=== PATIENT | male | born 1985 | race Caucasian/White ===

== ENCOUNTER 2016-09-15 07:29 | Inpatient (IN) | payer MEDICAID ==
--- NOTE | 2016-09-15 07:33 | EDPHY ---
H & P HPI/ROS: CHIEF COMPLAINT: Abdominal pain HISTORY OF PRESENT ILLNESS: This is a 31-year-old male who arrives by ambulance. He reports abdominal pain that has been recurrent daily since the end of March. He has a history of peptic ulcer disease as a teenager. Since March he has been seen 4 times in emergency departments locally and once in an emergency department in [place]. He receives his primary care at [facility]. In May he underwent colonoscopy and endoscopy, both of which were reportedly normal. He was advised to take Prilosec twice daily, dicyclomine, and Zofran. He discontinue the Prilosec and the dicyclomine because they were not helping and he was concerned about side effects. The Zofran occasionally helps but not consistently. He was offered antianxiety medication but declined them. He saw a psychiatrist who agreed that he did not need anxiolytics. He describes his pain is midepigastric, sharp and burning. It occurs every morning around 5:00 a.m. and is followed by nausea and vomiting. He does not drink any alcohol, does not use tobacco products, and does not take any illicit drugs. He is not using NSAIDs. No recent travel. He smokes marijuana daily in varying quantity. He does tell me that he takes hot showers for relief. Cyclic vomiting has been discussed with him. He states that he takes that hot showers because they are a comfort to him--he spent 6 years incarcerated, some of it in solitary confinement, and hot showers feel like a luxury to him since then. He does not think that he has cyclic vomiting. He denies diarrhea, hematemesis, hematochezia, and melena. REVIEW OF SYSTEMS: A ten point review of systems was performed and is negative with the exception of the items mentioned in the HPI. Source: Patient, EMS Exam Limitations: No limitations - Medical/Surgical History PMH: Ulcer disease as a child - Social History Smoking Status: Never smoked Alcohol Use: None Drug Use: Marijuana Additional Social History: He is . 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 - Physical Exam Exam: General Appearance: Alert. Vital signs reviewed. He appears somewhat uncomfortable. Blood pressure 139/93, vitals otherwise normal. Intermittently tearful. Eyes: Pupils equal and round, no conjunctival injection, no discharge. Anicteric. ENT, Mouth: Mucous membranes are moist, no oropharyngeal erythema or edema. Neck: No lymphadenopathy, supple. Respiratory: Lungs are clear to auscultation; no wheezes, rales, or rhonchi. Cardiovascular: Regular rate and rhythm; no murmur, rub, or gallop. Gastrointestinal: Abdomen is soft with midepigastric tenderness, no guarding, no masses or organomegaly, bowel sounds normal. Skin: Warm and dry, no rashes on exposed skin, normal color. Back: Nontender to palpation over the thoracolumbar spine. No CVAT. Extremities: No lower extremity edema, no calf tenderness or swelling. Neurological: Alert and oriented. Moving all four extremities easily and equally. Psychiatric: Normal affect. No agitation. Constitutional: Initial Vital Signs Temperature (C) 36.5 C 09/15/16 07:34 Heart Rate 69 09/15/16 07:34 Respiratory Rate 18 09/15/16 07:34 Blood Pressure 139/93 H 09/15/16 07:34 O2 Sat (%) 94 09/15/16 07:34 O2 Delivery Mode Room Air Allergies/Adverse Reactions: Sulfa (Sulfonamide Antibiotics) Allergy (Verified 09/15/16 11:36) Swelling/neck,face,throat Home Medications: Medication Instructions Recorded Herbals/Supplements -Info Only 1 ea PO DAILY 09/15/16 Medical Decision Making ED Course/Re-evaluation: 31-year-old male with a history of daily abdominal pain and nausea for the past 5 months. He has had numerous evaluations including a GI workup with colonoscopy and endoscopy. I requested his records from [facility]. He received fentanyl, morphine, and Zofran EN route. Around 8:20 a.m. he requested additional pain medication. He is being given IV ketamine. Records have arrived from [facility]. He was evaluated on April 16, 2016. At that time he was diagnosed with gastritis and discharged on Prilosec and Zofran. He was seen again 4 days later, on April 20, 2016 with this same complaints. CT scan of the abdomen and pelvis with IV contrast was performed and was normal. He was again discharged. His most recent visit was on September 13, 2016. While in the emergency department he received IV normal saline , Pepcid, Haldol, and Benadryl. 9:30 a.m.. He had no relief with IV ketamine. Haldol 2.5 mg and Benadryl 25 mg administered intravenously. He was re-evaluated at 9:30 a.m. and is complaining of feeling as if he is going to crawl out of his skin. This is likely reaction to the Haldol. He will receive an additional 25 mg of Benadryl IV. His pain remains unchanged. His pain has persisted throughout his stay in the ED, in spite of above medications and dilaudid. He has not had vomiting or retching, as is usually seen with cyclic vomiting syndrome. He reports intermittent diarrhea, none today. Inflammatory bowel disease unlikely. Lipase is normal--pancreatitis/ biliary disease less likely. PUD/gastritis remain possible. Irritable bowel syndrome possible. I am recommending admission for pain control and further evaluation. He is being admitted to the hospitalist service. Differential Diagnosis: Abdominal pain including but not limited to appendicitis, bowel obstruction, abdominal migraine, cyclic vomiting, pancreatitis, cholecystitis, peptic ulcer disease/gastritis, IBD, and urinary tract infection. - Data Points Laboratory Results: Laboratory Results 09/15/16 07:30 09/15/16 07:30 Medications Given: Discontinued Medications Al Hydroxide/Mg Hydroxide (Maalox Susp) 30 ml PO ONCE ONE Stop: 09/15/16 07:54 Last Admin: 09/15/16 08:33 Dose: 30 ml Diphenhydramine HCl (Benadryl Injection) 25 mg IVP EDNOW ONE Stop: 09/15/16 08:54 Last Admin: 09/15/16 09:03 Dose: 25 mg Diphenhydramine HCl (Benadryl Injection) 25 mg IVP EDNOW ONE Stop: 09/15/16 09:29 Last Admin: 09/15/16 09:31 Dose: 25 mg Haloperidol Lactate (Haldol Injection) 2.5 mg IVP EDNOW ONE Stop: 09/15/16 08:54 Last Admin: 09/15/16 09:04 Dose: 2.5 mg Hydromorphone HCl (Dilaudid) 0.5 mg IVP EDNOW ONE Stop: 09/15/16 10:02 Last Admin: 09/15/16 10:06 Dose: 0.5 mg Hyoscyamine Sulfate (Levsin, Hyomax-Sl) 0.25 mg PO ONCE ONE Stop: 09/15/16 07:54 Last Admin: 09/15/16 08:33 Dose: 0.25 mg Sodium Chloride (Ns) 1,000 mls @ 0 mls/hr IV EDNOW ONE; Wide Open PRN Reason: Protocol Stop: 09/15/16 07:41 Last Admin: 09/15/16 08:33 Dose: 1,000 mls Famotidine/Sodium Chloride (Pepcid 20 Mg (Premix)) 50 mls @ 200 mls/hr IV EDNOW ONE Stop: 09/15/16 08:07 Last Admin: 09/15/16 08:34 Dose: 50 mls Ketamine HCl (Ketamine) 15.9 mg 0.2 mg/kg (15.9 mg) IVP EDNOW ONE Stop: 09/15/16 08:16 Last Admin: 09/15/16 08:26 Dose: 15.9 mg Lidocaine (Lidocaine 2% Viscous) 15 ml PO ONCE ONE Stop: 09/15/16 07:54 Last Admin: 09/15/16 08:33 Dose: 15 ml Departure - Departure Disposition: Home, Routine, Self-Care Clinical Impression: Abdominal pain Qualifiers: Abdominal location: epigastric Qualified Code(s): R10.13 - Epigastric pain Condition: Good
[2016-09-15] MEDS ORDERED: NS 1,000 ML IV ONE (07:40)
[2016-09-15] MEDS ORDERED: MAG HYDROX/AL HYDROX/SIMETH 30 ML UDCUP PO ONE (07:53)
[2016-09-15] MEDS ORDERED: LIDOCAINE 2% VISCOUS 15 ML UDCUP PO ONE (07:53)
[2016-09-15] MEDS ORDERED: HYOSCYAMINE SULFATE 0.125 MG TAB PO ONE (07:53)
[2016-09-15] MEDS ORDERED: FAMOTIDINE 20 MG/NACL 50 ML IV ONE (07:53)
[2016-09-15 08:01] LABS: % IMMATURE GRANULYOCYTES 0.7 % (0.0-1.1); ABSOLUTE IMMATURE GRANULOCYTES 0.09 10^3/uL (0.00-0.10); ADD DIFF? NO; ADD MORPH? NO; ADD SCAN? NO; ATYPICAL LYMPHOCYTE FLAG 0 (0-99); FRAGMENT RBC FLAG 0 (0-99); HEMATOCRIT 51.1 % (40.0-51.0); HEMOGLOBIN 18.1 g/dL (13.7-17.5); LEFT SHIFT FLG 0 (0-99); LIPEMIA HEMOLYSIS FLAG 90 (0-99); MEAN CELL HEMOGLOBIN 31.4 pg (27.9-34.1); MEAN CELL HEMOGLOBIN CONCENTR. 35.4 g/dL (32.4-36.7); MEAN CELL VOLUME 88.7 fL (81.5-99.8); MEAN PLATELET VOLUME 9.9 fL (8.7-11.7); PLATELET CLUMPS FLAG 0 (0-99); PLATELET COUNT 352 10^3/uL (150-400); RED BLOOD CELL COUNT 5.76 10^6/uL (4.40-6.38); RED CELL DISTRIBUTION WIDTH 12.5 % (11.5-15.2)
[2016-09-15 08:09] LABS: ALANINE AMINOTRANSFERASE 80 IU/L (21-72); ALBUMIN 4.9 g/dL (3.5-5.0); ALKALINE PHOSPHATASE 108 IU/L (38-126); ANION GAP 18 mEq/L (8-16); ASPARTATE AMINOTRANSFERASE 37 IU/L (17-59); BILIRUBIN,TOTAL 0.8 mg/dL (0.1-1.4); BILIRUBIN-CONJUGATED 0.4 mg/dL (0.0-0.5); BILIRUBIN-UNCONJUGATED 0.4 mg/dL (0.0-1.1); CALCIUM 10.2 mg/dL (8.5-10.4); CARBON DIOXIDE 25 mEq/l (22-31); CHLORIDE 105 mEq/L (97-110); CREATININE 0.9 mg/dL (0.7-1.3); GLOMERULAR FILTRATION RATE > 60; GLUCOSE 98 mg/dL (70-100); POTASSIUM 3.6 mEq/L (3.5-5.2); SODIUM 148 mEq/L (134-144); TOTAL PROTEIN 8.4 g/dL (6.3-8.2)
[2016-09-15] MEDS ORDERED: KETAMINE 100 MG/10 ML SYR IVP ONE (08:15)
[2016-09-15] MEDS ORDERED: HYOSCYAMINE SULFATE 0.125 MG TAB ONE (08:30)
[2016-09-15] MEDS ORDERED: HALOPERIDOL LACT 5 MG/ML INJ IVP ONE (08:53)
[2016-09-15 09:30] LABS: COLOR YELLOW; LEUKOCYTE ESTERASE,URINE NEGATIVE (NEGATIVE); NITRITE,URINE NEGATIVE (NEGATIVE)
[2016-09-15] MEDS ORDERED: HYDROmorphONE/DILAUDID 1 MG/ML SYR IVP ONE (10:01)
[2016-09-15] MEDS ORDERED: PROMETHAZINE HCL 25 MG TAB PO PRN (13:46)
[2016-09-15] MEDS ORDERED: ACETAMINOPHEN 325 MG TAB PO PRN (13:46)
[2016-09-15] MEDS ORDERED: ONDANSETRON DISINTEGRATING 4 MG TAB PO PRN (13:46)
[2016-09-15] MEDS ORDERED: ZOLPIDEM TARTRATE 5 MG TAB PO PRN (13:46)
[2016-09-15] MEDS: oxyCODONE IR 5 MG TAB PO PRN (14:19)
[2016-09-15] MEDS: ONDANSETRON 4 MG/2 ML VIAL IVP PRN ×2 (14:22→18:05)
--- NOTE | 2016-09-15 14:34 | GHP ---
[f rep st] HISTORY AND PHYSICAL DATE OF ADMISSION: 09/15/2016 CHIEF COMPLAINT: Epigastric abdominal pain with nausea and vomiting. HISTORY OF PRESENT ILLNESS: A 32-year-old male presents with a complaint of epigastric abdominal pa in with nausea, vomiting and loose stools to diarrhea. In March 2016, the gentleman began experi encing burning epigastric abdominal pain with loose stools. The episode of pain would come on at 5 a.m. in the morning, be followed by a soft stool and then sometimes liquid stools and associated wit h a feeling of nausea and intermittently he would have vomiting. The pain would be 7/10 to 10/10 an d last anywhere from 1-2 hours. At that point, the pain would resolve and he was able to go about w ork in his daily life. He was seen at [facility] Emergency Department on 04/20/2016 and on 03/27. During these evaluations, no definitive diagnosis was made and he was prescribed Prilosec. On the initial visit, a CT of the abdomen and pelvis was performed with IV contrast and had no path ologic findings. He was prescribed Prilosec. He returned 4 days after the initial visit with the s esther symptoms, was re-evaluated without positive findings and again sent home. He was seen again on September 13, 2016, 2 days [employer] of his admission here at [facility]. At that visit, again there were no positive findings and he was discharged and he now returns for admission at [facility] with worsening abdominal nia n this morning. The pain again came on at 5 a.m., was burning, spreading in his epigastric region. He had one loose stool and then several watery stools followed by unremitting nausea and vomiting f or 1-2 hours. He was driving himself to the emergency department when he nearly passed out because of vomiting. He called 911 and was transported here and subsequently admitted. During this interval, he denies having fever, chills, sweats. 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 He has a history of hepatitis C for 9 years ago when he used IV medication and s hared needles. He reports his viral load has never been high and he has never been treated and he b elieves that his liver function tests are normal. Of particular note is once the pain and vomiting have resolved, he feels fine and can eat during the course of the day. He does smoke marijuana prob ably on a daily basis of an unknown quantity. He is generally able to sleep; although he says he mercedes s difficulty sleeping for fear of the onset of the pain. He will be awakened or awake at 5 a.m. whe n the pain will start again. This has been a daily problem since March 2016. He has never noted any black or tarry stools. It was noted he had black stools previously at the [facility] evaluations , but he was taking Pepto-Bismol at that time. Now, he notes the vomitus is green without any signs or flecks of blood. Stools have never been black or melanotic. He does have three family relative s on his father's side who have bowel problems and he describes it as irritable bowel syndrome. PAST MEDICAL HISTORY: Denies asthma, high blood pressure, diabetes or renal problems. PAST SURGICAL HISTORY: None. ALLERGIES: Sulfa drugs, causes tongue swelling. REVIEW OF SYSTEMS: In addition to the above HPI, the gentleman has been seen at of [facility] here he has had a colonoscopy, endoscopy and biopsy and these are reported to have all been negative by conversation with Dr. Leo Perea today. I have also reviewed medical records from [facility] to obtain this information. Of special note, all laboratories have been normal with a normal lipase, n ormal bilirubin, but on the last visit on September 13, his SGPT was elevated at 97 and the SGOT was el evated at 51 slightly. Viral studies for hepatitis C were not performed. The remainder of a 10-poi nt review of systems is negative. FAMILY HISTORY: Positive in a male cousin, an aunt and his grandmother all of which had a bowel dis order which he describes as irritable bowel disorder. There is no other family history. 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 He reports he does with occasion jump into outdoors streams and ponds and works in the [place] area. He has not be en exposed to anyone recently ill. He was incarcerated for 6 years and left correction 3 years ago. He is currently seeing a lady who he describes as his fiancee. She has a son and he considers it his son. Tobacco is none. Marijuana is positive in the form of smoking. Drugs IV and recreational otherwise are negative. PHYSICAL EXAMINATION: GENERAL: This is a pleasant, alert gentleman who appears without distress, b ut perhaps slightly anxious. Vital Signs: His vital signs here are normal. HEENT: Shows no signs of scleral icterus. His EOMs are intact. NECK: Supple without meningismus. LUNGS: Clear to P a nd A without wheezing or rales. HEART: Singular S1, S2. No murmur or gallop. ABDOMEN: Mild epig astric tenderness without a palpable or pulsatile mass. Liver and spleen cannot be palpated. There is no rebound. RECTAL: Exam was deferred. Showed normal male genitalia. EXTREMITIES: No edema, cyanosis or clubbing. There are several tattoos noted. LABORATORY: WBC is slightly elevated at 13,500 with a hemoglobin 18.1, and there is a left shift of his white count. Chemistry panel shows matters to be entirely normal except his ALT is elevated at 80 with a total protein of 8.4 and an elevated anion gap of 18 consistent with a metabolic acidosis of a mild degree. Urinalysis is negative. As noted above. I have reviewed the medical records from [facility] from 3 visits on March 27, April 20 and September 13. Again, these records show a negative CT scan performed on and laboratory showing an elevated ALT, consistent with our findings on September 13. I have discussed the case with Dr. Leo Perea today who will obtain the records from of the [facility]. He will be seeing the patient in consultation. ASSESSMENT: 1. Acute abdominal pain with the only positive finding of a slightly elevated ALT liver enzyme and a known positive history for hepatitis C. He does have some epigastric pain at this time, but prima rily the most severe pain which he has rated 10/10 has resolved. The cyclic and timed characteristi c of his pain is most consistent with an irritable bowel syndrome type pain and perhaps a hyperemesi s syndrome secondary to the use of marijuana. The patient himself was slightly vague as to the mela tity of marijuana that he has used; although he does note that he stopped marijuana for 2 weeks with out improvement in the symptoms. I believe this is probably a functional bowel disorder; although d ue to the elevated ALT, I will obtain an abdominal ultrasound and a lipase. In addition, the time a nd cyclic characteristic is most consistent with a hyperemesis secondary to marijuana and if that is the case, then the gentleman would need to stop it for not just 2 weeks, but probably several month s before this would resolve. 2. History of positive hepatitis C with a slightly elevated ALT liver enzyme. Viral load studies w ill be useful and will be ordered. 3. The gentleman reports diarrhea associated with these symptoms, so it most likely is functional, would be prudent to obtain a GI panel and a C. difficile study, which will be ordered. 4. Deep venous thrombosis prophylaxis will be with early ambulation. BILLING: The gentleman will be admitted to observation status. A GI consult will be obtained; alth ough I believe at this time until we have further positive findings, this would be best managed furt her as an outpatient following the above-noted lab tests. TIME: This admission required 55 minutes. /[id number]/MODL
--- NOTE | 2016-09-15 21:10 | GCON ---
[f rep st] CONSULTATION DATE OF CONSULTATION: 09/15/2016 REFERRING PHYSICIAN: Jose Alejandro Waller Jr., MD REASON FOR CONSULTATION: Abdominal pain. Dr. Waller, thank you very kindly for asking me to evaluate this patient in consultation for a kemi f complaint of generalized and epigastric abdominal pain. HISTORY OF PRESENT ILLNESS: He is a 31-year-old gentleman who has a very longstanding history of ab dominal pain dating back into his sprigger when he was 16 years old, and was told that he had a peptic ulcer. It is unclear how this diagnosis was made. Also of historical note is multiple me mbers in his family have had gastrointestinal problems that are felt to be related to possible funct ional bowel disease. The patient was in his usual state of health up until about March when he m carolee back from [place] to [place] and began developing epigastric and periumbilical abdominal pain. T he pain is a burning discomfort that begins in the morning. In the earlier months of his illness he was having pain that was more episodic lasting a few hours each morning and associated with nausea. There was also the onset of lower cramping abdominal pain, urgency, and diarrhea described as loos e, kind of soft stools. Having a bowel movement would actually escalate his symptoms. He has been incarcerated for the last 6 years which interestingly also began in March of 2008. It might be t hat his recent abdominal pain, onset because of the traumatic stress of his incarceration. He also had an associated move back to [place] which could also be an environmental trigger. His diagnostic evaluation for this has included an upper endoscopy and colonoscopy performed at the [facility] group. I have not seen those reports, but the patient s ays that he was told they were normal. He has also had a CT scan of the abdomen and pelvis in of this year at [facility] which I have reviewed and which is unremarkable for a cause of pa in. His workup on admission to [facility] revealed a mild elevation in ALT, but he has under lying viral hepatitis C that has not been treated and this may account for it. He denies any fever, chills, weight loss that is unintentional, hematochezia, or constipation. He denies joint pain, ad enopathy, jaundice, or rash. He has no other significant medical problems. He has been on nortript yline in the past for an attempt at treating this illness, but this made him feel dysphoric and depr essed. He also has been describing anxiety with panic attacks. It seemed to occur at the onset of the pain where he describes a sense of impending doom, pallor to his skin, and profuse sweating asso ciated with palpitations. I am asked to assist with further evaluation and management. PAST MEDICAL HISTORY: 1. Significant for anxiety disorder. 2. Viral hepatitis C. I do not know any of the details regarding when this was acquired, but he mercedes s not been treated and is naive to therapy. 3. 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 PAST SURGICAL HISTORY: None. MEDICATIONS: On admission include Prilosec which he has been taking intermittently. SOCIAL HISTORY: Occasional marijuana use. No significant alcohol use. No other substance abuse. He is . 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 ALLERGIES: Sulfa. FAMILY HISTORY: Significant for diarrhea predominant irritable bowel syndrome. REVIEW OF SYSTEMS: CONSTITUTIONAL: Denies fever or night sweats. Denies weight loss or anorexia. HEENT: Denies headache, visual disturbances, sore throat, rhinorrhea, or ear pain. PULMONARY: De nies cough, shortness of breath. No wheeze. CARDIOVASCULAR: No chest pain. He does report palpit ations sometimes with the onset of the pain that seems to be linked into anxiety symptoms. PSYCHIAT MAYUR: Anxiety, insomnia, depression. RHEUMATOLOGIC: No joint pain or swelling. No joint warmth. DERMATOLOGIC: No rash, jaundice, or pruritus. NEUROLOGIC: No seizures, paresthesias, weakness, or falls. GENITOURINARY: No hematuria, no flank pain. GYNECOLOGIC: No testicular pain or dysuria. No penile lesion. No anal or rectal pain. PHYSICAL EXAM: VITAL SIGNS: Blood pressure 112/64, heart rate 45 to 56 and regular, respirations 1 8, oxygenation 94% on room air. Temperature is 36.6. GENERAL: Mildly anxious appearing young male in no acute distress. HEENT: Normocephalic, atraumatic. Oropharynx clear. NECK: Supple. Scler ae anicteric. No lymphadenopathy. No thyromegaly. No carotid bruits. No jugular venous distentio n. PULMONARY: Clear to auscultation bilaterally. CARDIOVASCULAR: Regular rate and rhythm without murmur, rub, or gallop. GI: Abdomen is scaphoid. No organomegaly. Normal bowel sounds. No gi iation. No tenderness, rebound, or guarding. No palpable mass or lesion. No abdominal bruit. MUS CULOSKELETAL: No joint deformities, clubbing, cyanosis, or swelling. Normal gait and station. IMTIAZ ROLOGIC: Alert to person, place, and time. Cranial nerves grossly intact. Motor nonfocal. Speech is fluent and normal. Mood and affect are appropriate, but slightly anxious. No asterixis. DERMA TOLOGIC: No jaundice, rash, or lesion. HEMATOLOGIC: No bruising or epistaxis. DATABASE: Includes the following: White blood count 13.5, hematocrit 51.1. MCV 88.7, RDW 12.5, pl atelets 352. Sodium 148, potassium 3.6, chloride 105, bicarbonate 25, BUN 15, creatinine 0.9, gluco se 98, anion gap is 18, total bilirubin 0.8, alkaline phosphatase 108, AST 37, ALT elevated at 80, t otal protein 8.4, albumin 4.9. Lipase 209. Urinalysis is turbid, but negative otherwise. IMPRESSION: 1. Diffuse abdominal pain. 2. Episodes of nausea with vomiting. 3. Chronic diarrhea likely functional. 4. Anxiety with insomnia and possible panic attacks. 5. Elevated liver tests. 6. Remote history of chronic viral hepatitis C that is somewhat poorly characterized at this point. RECOMMENDATIONS: 1. Obtain the results of his EGD and colonoscopy with possible biopsies that were performed at [facility] in March. 2. Abdominal ultrasound to exclude cholelithiasis, biliary disease, and to assess liver morphology in the setting of viral hepatitis C. 3. Viral hepatitis panel to include a viral hepatitis A total antibody, hepatitis B surface antigen and core antibody total, hepatitis C antibody and PCR to better characterize his viral hepatitis C. He will likely benefit from treatment of this illness which should help globally with his health c are. 4. In regard to his abdominal pain and chronic diarrhea, I believe this is functional and does not require any further diagnostic testing. In this regard I would recommend azipramine 10 mg p.o. at b edtime and Librax 1 capsule p.o. three times daily. Librax can often be beneficial in patients who have a functional bowel syndrome manifesting pain, but also with a component of anxiety. 5. We will consider the use of Xifaxan for diarrhea predominant irritable bowel syndrome pending on how his initial treatment algorithm goes. 6. Check stool studies for C difficile and infection, although I think this less likely. 7. Further recommendations to follow his initial diagnostic workup and therapeutic algorithm. Thank you very kindly for allowing me to be involved in his care. Further recommendations to follow . /[id number]/MODL
[2016-09-15] MEDS: PANTOPRAZOLE SODIUM 40 MG in NS 100 ML IV SCH (21:21)
[2016-09-15] MEDS: DESIPRAMINE HCL 10 MG TAB PO SCH (21:21)
[2016-09-15] MEDS: LORazepam 2 MG/ML INJ IVP PRN (21:37)
[2016-09-16] MEDS: D5W 1/2 NS 1,000 ML IV SCH ×3 (03:32→21:21)
[2016-09-16] MEDS: LORazepam 2 MG/ML INJ IVP PRN (05:15)
[2016-09-16 05:28] LABS: % IMMATURE GRANULYOCYTES 0.3 % (0.0-1.1); ABSOLUTE IMMATURE GRANULOCYTES 0.03 10^3/uL (0.00-0.10); ADD DIFF? NO; ADD MORPH? NO; ADD SCAN? NO; ATYPICAL LYMPHOCYTE FLAG 10 (0-99); FRAGMENT RBC FLAG 0 (0-99); HEMATOCRIT 43.6 % (40.0-51.0); HEMOGLOBIN 14.9 g/dL (13.7-17.5); LEFT SHIFT FLG 0 (0-99); LIPEMIA HEMOLYSIS FLAG 90 (0-99); MEAN CELL HEMOGLOBIN CONCENTR. 34.2 g/dL (32.4-36.7); MEAN CELL VOLUME 90.8 fL (81.5-99.8); MEAN PLATELET VOLUME 9.8 fL (8.7-11.7); PLATELET CLUMPS FLAG 0 (0-99); PLATELET COUNT 248 10^3/uL (150-400); RED CELL DISTRIBUTION WIDTH 12.4 % (11.5-15.2)
[2016-09-16] MEDS: oxyCODONE IR 5 MG TAB PO PRN ×3 (08:04→23:28)
[2016-09-16] MEDS ORDERED: MULTIVITAMINS 1 EACH TAB PO SCH (09:00)
[2016-09-16] MEDS: PANTOPRAZOLE SODIUM 40 MG in NS 100 ML IV SCH (09:36)
[2016-09-16] MEDS: CHLORDIAZ/CLIDINIU 5 MG/2.5 MG 1 CAP PO PRN ×2 (13:01→21:19)
--- NOTE | 2016-09-16 14:04 | HOSPPROG ---
Hospitalist Progress Note Assessment/Plan: 31-year-old male admitted with acute abdominal pain of unclear etiology. Patient has a history of epigastric abdominal pain since March 2016. He had been seen by [facility] and we are waiting those records. He had also been seen 3 times in the [facility] Emergency Department a in [facility] without definitive in final findings. On presentation he was experiencing acute abdominal pain with nausea vomiting and had diarrhea previously. - Acute abdominal pain possibly of functional disorder. He has a family history positive for IBS and the episodic nature of it occurring every morning at 5:00 a.m. is without other positive objective findings seems to indicate a probable functional disorder of irritable bowel syndrome. Consult with GI is appreciated. - Pain management: Will attempt to use of very few narcotics if at all. He this situation has a high possibility for narcotic abuse although the patient seems strongly motivated to avoid narcotics. We will follow the recommendations of GI and this matter as GI will be following. - History of hepatitis C related to drug abuse 9-12 years ago. He has never been treated for hepatitis-C. The antibody is positive here and we are waiting viral load studies. - Marijuana possible excessive use: Daphnie smokes approximately half a gram of marijuana daily. His abdominal pain may be secondary to and hyperemesis syndrome secondary to the use of marijuana. Thus I have encouraged him to stop marijuana completely and totally. He previously stopped it for 2 weeks but that would be an insufficient. Time to production control planner whether this is a hyper emesis syndrome related to marijuana. Plan: review [facility] records from [facility] regarding his colonoscopy and endoscopy in March 2016 along with biopsies. We will attempt to treat his abdominal pain as a functional disorder and limit the use of narcotics. We are waiting the final viral load studies for hepatitis C. I had a 30 minutes conversation with the gentleman regarding the possibility that this is a functional disorder and need to limit the use of narcotics. He is agreeable to this approach as he is currently working has a fiancee and a young son and is highly motivated to function without the use of drugs or narcotics. I also stressed and he agreed that he would stop marijuana completely in light of the possibility that the abdominal pain is secondary to hyper emesis syndrome related to cannabis. disposition: [place]. [place] Time: 45 minutes Subjective: patient did not have an episode of severe abdominal pain this morning. Had burning epigastric pain at the feeling that he needed to go to the bathroom but he never had a stool nor did he have any diarrhea nausea or vomiting. Objective: Vital Signs Temp Pulse Resp BP Pulse Ox 36.6 C 48 L 16 111/59 L 94 09/16/16 08:43 09/16/16 08:43 09/16/16 08:43 09/16/16 08:43 09/16/16 08:43 Laboratory Results 09/16/16 04:50 09/15/16 09/16/16 09/17/16 05:59 05:59 05:59 Intake Total 1550 1575 Balance 1550 1575 - Time Spent With Patient Time Spent with Patient: greater than 35 minutes Time Spent with Patient: Greater than 35 minutes spent on this patients care, greater than 50% of time spent counseling, educating, and coordinating care regarding the above mentioned plan. - Pending Discharge Pending Discharge Within 24 Hours: Yes Pending Discharge Date: 09/17/16 Pending Discharge Time: 11:00 - Physical Exam Constitutional: no apparent distress Eyes: PERRL Ears, Nose, Mouth, Throat: moist mucous membranes, hearing normal Cardiovascular: regular rate and rhythym, no murmur, rub, or gallop Respiratory: no respiratory distress, no rales or rhonchi Gastrointestinal: normoactive bowel sounds, soft, non-tender abdomen, no palpable masses, tenderness ( Some slight tenderness in the epigastrium without a palpable mass or rebound.) Genitourinary: no bladder fullness Skin: warm Musculoskeletal: full muscle strength Neurologic: AAOx3, CN II-XII Intact Psychiatric: interacting appropriately ICD10 Worksheet Patient Problems: Problems Problem Status Onset Abdominal pain Acute
[2016-09-16] MEDS: LORazepam 0.5 MG TAB PO PRN ×2 (16:14→23:48)
[2016-09-16] MEDS ORDERED: FAMOTIDINE 20 MG TAB PO SCH (16:15)
--- NOTE | 2016-09-16 16:53 | SOAPPROG ---
SHAMIKA Progress Note Assessment/Plan: Assessment: 1. Functional dyspepsia 2. Constipation 3. Chronic abdominal pain 4. HCV Plan: 1. Stop IV ativan 2. Stop IV protonix 3. D/C phenergan in favor of zofran 4. Continue desipramine 10mg qhs 5. Librax 1 capsule po TID PRN pain 6. He has IV morphine and oxy-IR for breakthrough which I would also try an d/c soon 7. Stop pepcid 8. Start protonix 40mg once daily 9. Amitiza 8mcg po BID for constipation 10. Await HCV viral load and genotype. If positive (confirming chronic HCV infection) will arrange for outpatient Rx. 11. U/S normal. 09/16/16 16:49 Subjective: CC: Generalized abdominal pain Symptoms continue unchanged. Constipated today. Eating. U/S normal. HCV viral load pending. No further diarrhea. Started desipramine and librax yesterday. Not really helping much at this time. Objective: Vital Signs Temp Pulse Resp BP Pulse Ox 36.6 C 48 L 16 111/59 L 94 09/16/16 08:43 09/16/16 08:43 09/16/16 08:43 09/16/16 08:43 09/16/16 08:43 Laboratory Results 09/16/16 04:50 09/15/16 09/16/16 09/17/16 05:59 05:59 05:59 Intake Total 1550 1575 Balance 1550 1575 Physical Exam - Physical Exam General Appearance: WD/WN, no apparent distress EENT: normal ENT inspection Neck: full range of motion, supple Respiratory: lungs clear, normal breath sounds Cardiac/Chest: regular rate, rhythm, No tachycardia, No diastolic murmur, No systolic murmur, No friction rub Abdomen: normal bowel sounds, non-tender, soft, No distended, No guarding, No rebound, No hernia, No mass, No hepatomegaly, No splenomegaly, No ascites Back: Normal inspection Skin: normal color, warm/dry ICD10 Worksheet Patient Problems: Problems Problem Status Onset Abdominal pain Acute
[2016-09-16] MEDS: ONDANSETRON 4 MG/2 ML VIAL IVP PRN (18:47)
[2016-09-16] MEDS: DESIPRAMINE HCL 10 MG TAB PO SCH (21:19)
[2016-09-16] MEDS: LUBIPROSTONE 8 MCG CAP PO SCH (21:24)
[2016-09-16] MEDS ORDERED: TEMAZEPAM 15 MG CAP PO PRN (22:00)
[2016-09-17 04:33] VITALS: RESP 16
[2016-09-17] MEDS: D5W 1/2 NS 1,000 ML IV SCH (04:36)
[2016-09-17 05:21] LABS: % IMMATURE GRANULYOCYTES 0.3 % (0.0-1.1); ABSOLUTE IMMATURE GRANULOCYTES 0.03 10^3/uL (0.00-0.10); ADD DIFF? NO; ADD MORPH? NO; ADD SCAN? NO; ATYPICAL LYMPHOCYTE FLAG 0 (0-99); FRAGMENT RBC FLAG 0 (0-99); HEMATOCRIT 44.4 % (40.0-51.0); HEMOGLOBIN 15.8 g/dL (13.7-17.5); LEFT SHIFT FLG 0 (0-99); LIPEMIA HEMOLYSIS FLAG 90 (0-99); MEAN CELL HEMOGLOBIN 31.7 pg (27.9-34.1); MEAN CELL HEMOGLOBIN CONCENTR. 35.6 g/dL (32.4-36.7); MEAN PLATELET VOLUME 9.6 fL (8.7-11.7); PLATELET CLUMPS FLAG 0 (0-99); PLATELET COUNT 280 10^3/uL (150-400); RED BLOOD CELL COUNT 4.99 10^6/uL (4.40-6.38)
[2016-09-17 05:44] LABS: ANION GAP 9 mEq/L (8-16); CARBON DIOXIDE 26 mEq/l (22-31); CHLORIDE 105 mEq/L (97-110); GLOMERULAR FILTRATION RATE > 60; GLUCOSE 86 mg/dL (70-100); POTASSIUM 4.1 mEq/L (3.5-5.2); SODIUM 140 mEq/L (134-144)
--- NOTE | 2016-09-17 09:33 | SOAPPROG ---
SOAP Progress Note Assessment/Plan: Assessment: 1. Functional dyspepsia 2. Constipation 3. Chronic abdominal pain 4. HCV Plan: 1. Ok for d/c home 2. Continue librax 1 capsule po TID PRN 3. Desipramine 10mg po qhs 4. Ok with cannabinoids for pain that he has been using but he needs to be sensible with dosing 5. Could consider tramadol for adjunctive pain mgt 6. FODMAPS diet 7. Amitiza 8mcg po BID PRN constipation 8. Daily probiotic 9. GI f/u for IBS and HCV Rx. Will sign off. Call with questions please. 09/17/16 09:29 Subjective: CC: abdominal pain. Ongoing generalized pain but better. Tolerating po. Started amitiza but no BM. He is ok with going home today and outpatient f/u Objective: Vital Signs Temp Pulse Resp BP Pulse Ox 36.7 C 47 L 16 121/70 H 96 09/17/16 08:00 09/17/16 08:00 09/17/16 08:00 09/17/16 08:00 09/17/16 08:00 Laboratory Results 09/17/16 04:31 09/17/16 04:31 09/16/16 09/17/16 09/18/16 05:59 05:59 05:59 Intake Total 4676 Output Total 400 Balance 4276 Physical Exam - Physical Exam General Appearance: WD/WN EENT: normal ENT inspection Respiratory: lungs clear Cardiac/Chest: regular rate, rhythm Abdomen: normal bowel sounds, non-tender, soft, No guarding, No rebound ICD10 Worksheet Patient Problems: Problems Problem Status Onset Abdominal pain Acute
[2016-09-17] MEDS: LUBIPROSTONE 8 MCG CAP PO SCH (11:28)
[2016-09-17 15:32] VITALS: BP 124/71; PULSE 61; TEMP 97.7; O2SAT 96
--- NOTE | 2016-09-17 19:37 | GDS ---
[f rep st] DISCHARGE SUMMARY DISCHARGE DIAGNOSES: 1. Functional dyspepsia. 2. Constipation. 3. Chronic abdominal pain. 4. Hepatitis C viral infection. HOSPITAL COURSE AND STAY BY PROBLEM: Abdominal pain. The patient was admitted to the hospital due to severe abdominal pain and was subsequently treated with IV narcotics. GI was consulted who thoug ht his symptoms were most likely due to functional dyspepsia, constipation and chronic abdominal nia n. It was recommended that he start Librax 1 p.o. three times daily, desipramine 10 mg at bedtime, as well as Amitiza three times daily 8 mcg twice daily as needed for constipation. A probiotic was recommended. It was recommended that he follow up with GI for hep C treatment. On physical exam on the day of discharge, blood pressure 121/70, pulse 47, respiratory rate 16, O2 s aturation 96% on room air and temperature afebrile. In general, in no acute distress. The abdomen is soft, nontender, nondistended. No guarding or rebound tenderness. Normoactive bowel sounds. Pertinent labs and studies during this hospital stay: Abdominal ultrasound done 09/15/2016, refer t o report. DISCHARGE MEDICATIONS: Please refer to discharge medication reconciliation [facility] for details. DISCHARGE INSTRUCTIONS: The patient will be discharged from the hospital where once again, it was r ecommended that he follow up with GI for hepatitis C treatment. He should also establish care with his primary care provider and have outpatient HIV test, given his risk factors. /[id number]/MODL
[2016-09-18 13:43] LABS: HCV QT RNA PCR 38607 IU/mL (<15)
== END 2016-09-17 16:41 | disposition home or self-care (01) | DRG 392 ==
LOC: EDUNIT# → F1N 10:50 → OBSVTOIN 09-16 16:50
PROVIDERS: ADMIT Internal Medicine Pulmonary Disease; ATTEND Family Medicine
DX: K30 Functional dyspepsia (principal); K59.00 Constipation, unspecified; R10.9 Unspecified abdominal pain; R19.7 Diarrhea, unspecified; B19.20 Unspecified viral hepatitis C without hepatic coma; F12.10 Cannabis abuse, uncomplicated; F41.9 Anxiety disorder, unspecified; Z83.79 Family history of other diseases of the digestive system; Z88.2 Allergy status to sulfonamides
CPT/HCPCS: 86708-90; 96365; G0378; G0472; J1170; J1200; J2060; J2405

== ENCOUNTER 2016-12-10 11:52 | Emergency (ER) | payer MEDICAID ==
[2016-12-10] MEDS ORDERED: HALOPERIDOL LACT 5 MG/ML INJ IVP ONE (12:42)
[2016-12-10] MEDS ORDERED: METOCLOPRAMIDE 10 MG/2 ML VIAL IVP ONE (12:42)
[2016-12-10 12:47] LABS: % IMMATURE GRANULYOCYTES 0.5 % (0.0-1.1); ABSOLUTE IMMATURE GRANULOCYTES 0.07 10^3/uL (0.00-0.10); ADD DIFF? NO; ADD MORPH? NO; ADD SCAN? NO; ATYPICAL LYMPHOCYTE FLAG 0 (0-99); FRAGMENT RBC FLAG 0 (0-99); HEMATOCRIT 51.3 % (40.0-51.0); HEMOGLOBIN 18.4 g/dL (13.7-17.5); LEFT SHIFT FLG 0 (0-99); LIPEMIA HEMOLYSIS FLAG 90 (0-99); MEAN CELL HEMOGLOBIN 30.9 pg (27.9-34.1); MEAN CELL HEMOGLOBIN CONCENTR. 35.9 g/dL (32.4-36.7); MEAN CELL VOLUME 86.1 fL (81.5-99.8); MEAN PLATELET VOLUME 9.2 fL (8.7-11.7); PLATELET CLUMPS FLAG 0 (0-99); PLATELET COUNT 364 10^3/uL (150-400); RED BLOOD CELL COUNT 5.96 10^6/uL (4.40-6.38); RED CELL DISTRIBUTION WIDTH 12.1 % (11.5-15.2)
--- NOTE | 2016-12-10 12:47 | EDPHY ---
H & P Stated Complaint: Abd pain, n/v x 9 mos Time Seen by Provider: 12/10/16 12:35 HPI/ROS: CHIEF COMPLAINT: Abdominal pain, vomiting and diarrhea HISTORY OF PRESENT ILLNESS: The patient is a 31-year-old man with history of functional dyspepsia, constipation, chronic abdominal pain and hepatitis C. he presents to the emergency department today complaining of abdominal pain that he states has been present since March of this year. He was admitted September with similar complaints. At that time he was seen by Dr. Perea from GI. Abdominal ultrasound was performed. He states that he has had upper endoscopy as well as colonoscopies performed and no specific diagnosis made. He has been put on an antidepressant as well as Levsin. He states that these are not working at home. He does have a history of cannabis use but states he has decreased significantly. He denies chest pain or shortness of breath. REVIEW OF SYSTEMS: Constitutional: denies: chills, fever, recent illness, recent injury EENTM: denies: blurred vision, double vision, nose congestion Respiratory: denies: cough, shortness of breath Cardiac: denies: chest pain, irregular heart rate, lightheadedness, palpitations Gastrointestinal/Abdominal: See HPI Genitourinary: denies: dysuria, frequency, hematuria, pain Musculoskeletal: denies: joint pain, muscle pain Skin: denies: lesions, rash, jaundice, bruising Neurological: denies: headache, numbness, paresthesia, tingling, dizziness, weakness Hematologic/Lymphatic: denies: blood clots, easy bleeding, easy bruising Immunologic/allergic: denies: HIV/AIDS, transplant EXAM: GENERAL: Well-appearing, well-nourished and in no acute distress. HEAD: Atraumatic, normocephalic. EYES: Pupils equal round and reactive to light, extraocular movements intact, sclera anicteric, conjunctiva are normal. ENT: TMs normal, nares patent, oropharynx clear without exudates. Moist mucous membranes. NECK: Normal range of motion, supple without lymphadenopathy or JVD. LUNGS: Breath sounds clear to auscultation bilaterally and equal. No wheezes rales or rhonchi. HEART: Regular rate and rhythm without murmurs, rubs or gallops. ABDOMEN: nontender, normoactive bowel sounds. No guarding, no rebound. No masses appreciated. BACK: No CVA tenderness, no spinal tenderness, step-offs or deformities EXTREMITIES: Normal range of motion, no pitting or edema. No clubbing or cyanosis. NEUROLOGICAL: Cranial nerves II through XII grossly intact. Normal speech, normal gait. 5/5 strength, normal movement in all extremities, normal sensation PSYCH: Normal mood, normal affect. SKIN: Warm, dry, normal turgor, no visible rashes or lesions. Source: Patient Exam Limitations: No limitations - Personal History Current Tetanus Diphtheria and Acellular Pertussis (TDAP): Yes - Medical/Surgical History Hx Asthma: No Hx Chronic Respiratory Disease: No Hx Diabetes: No Hx Cardiac Disease: No Hx Renal Disease: No Hx Cirrhosis: No Hx Alcoholism: No Hx HIV/AIDS: No Hx Splenectomy or Spleen Trauma: No Other PMH: Hep C+, Marijuana, chronic N/V. ?IBS - Family History Significant Family History: No pertinent family hx - Social History Smoking Status: Never smoked Alcohol Use: Sober Drug Use: None Constitutional: Initial Vital Signs Temperature (C) 36.7 C 12/10/16 12:00 Heart Rate 74 12/10/16 12:00 Respiratory Rate 22 H 12/10/16 12:00 Blood Pressure 123/70 H 12/10/16 12:00 O2 Sat (%) 100 12/10/16 12:00 O2 Delivery Mode Room Air Allergies/Adverse Reactions: Sulfa (Sulfonamide Antibiotics) Allergy (Intermediate, Verified 12/10/16 12:04) Swelling/neck,face,throat lorazepam [From Ativan] Allergy (Mild, Verified 12/10/16 12:04) Other-Enter Comments Home Medications: Medication Instructions Recorded Desipramine HCl [Norpramin] 10 mg PO 12/10/16 Hyoscyamine Sulfate [Levsin, 0.125 mg 12/10/16 Hyomax-Sl 0.125 mg (*)] Ketorolac Tromethamine [Toradol] 10 mg PO Q6H #16 tab 12/10/16 Promethazine HCl [Phenergan 25mg 25 mg TN Q4-6PRN PRN #10 suppr 12/10/16 supp (RX)] Medical Decision Making ED Course/Re-evaluation: 3:30 p.m. the patient has been sleeping. After getting up to go to the bathroom he states that he has had no improvement all in his symptoms. We will try ketamine and Toradol. He has already had multiple medications. We are trying to avoid narcotics. 4:15 p.m. after ketamine and Toradol the patient states that he is feeling better enough to go home. He is requesting a prescription for Toradol and something other than Zofran for nausea. I will give him Phenergan suppository. He is happy with this plan and declines further workup or testing. His abdominal exam is benign. Differential Diagnosis: Partial list of the Differential diagnosis considered include but were not limited to; cyclic vomiting, cannabis hyperemesis, and although unlikely based on the history and physical exam, I also considered appendicitis, obstruction, volvulus, biliary disease, peptic ulcer disease. I discussed these differential diagnoses and the plan with the patient as well as the usual and expected course. The patient understands that the diagnosis is provisional and that in medicine we are not always correct and that further workup is often warranted. Usual and customary warnings were given. All of the patient's questions were answered. The patient was instructed to return to the emergency department should the symptoms at all worsen or return, otherwise to followup with the physician as we discussed. - Data Points Laboratory Results: Laboratory Results 12/10/16 12:29 12/10/16 12:29 12/10/16 12/10/16 12/10/16 15:14 12:29 12:29 WBC 14.25 10^3/uL H 10^3/uL (3.80-9.50) RBC 5.96 10^6/uL 10^6/uL (4.40-6.38) Hgb 18.4 g/dL H g/dL (13.7-17.5) Hct 51.3 % H % (40.0-51.0) MCV 86.1 fL fL (81.5-99.8) MCH 30.9 pg pg (27.9-34.1) MCHC 35.9 g/dL g/dL (32.4-36.7) RDW 12.1 % % (11.5-15.2) Plt Count 364 10^3/uL 10^3/uL (150-400) MPV 9.2 fL fL (8.7-11.7) Neut % (Auto) 82.4 % H % (39.3-74.2) Lymph % (Auto) 13.1 % L % (15.0-45.0) [place] % (Auto) 3.5 % L % (4.5-13.0) Eos % (Auto) 0.1 % L % (0.6-7.6) Baso % (Auto) 0.4 % % (0.3-1.7) Nucleat RBC Rel Count 0.0 % % (0.0-0.2) Absolute Neuts (auto) 11.75 10^3/uL H 10^3/uL (1.70-6.50) Absolute Lymphs (auto) 1.86 10^3/uL 10^3/uL (1.00-3.00) Absolute Monos (auto) 0.50 10^3/uL 10^3/uL (0.30-0.80) Absolute Eos (auto) 0.02 10^3/uL L 10^3/uL (0.03-0.40) Absolute Basos (auto) 0.05 10^3/uL 10^3/uL (0.02-0.10) Absolute Nucleated RBC 0.00 10^3/uL 10^3/uL (0-0.01) Immature Gran % 0.5 % % (0.0-1.1) Immature Gran # 0.07 10^3/uL 10^3/uL (0.00-0.10) Sodium 142 mEq/L mEq/L (134-144) Potassium 4.5 mEq/L mEq/L (3.5-5.2) Chloride 106 mEq/L mEq/L (97-110) Carbon Dioxide 23 mEq/l mEq/l (22-31) Anion Gap 13 mEq/L mEq/L (8-16) BUN 15 mg/dL mg/dL (7-23) Creatinine 0.9 mg/dL mg/dL (0.7-1.3) Estimated GFR > 60 Glucose 143 mg/dL H mg/dL (70-100) Calcium 10.6 mg/dL H mg/dL (8.5-10.4) Total Bilirubin 1.0 mg/dL mg/dL (0.1-1.4) Conjugated Bilirubin 0.3 mg/dL mg/dL (0.0-0.5) Unconjugated Bilirubin 0.7 mg/dL mg/dL (0.0-1.1) AST 37 IU/L IU/L (17-59) ALT 76 IU/L H IU/L (21-72) Alkaline Phosphatase 134 IU/L H IU/L (38-126) Total Protein 8.0 g/dL g/dL (6.3-8.2) Albumin 5.0 g/dL g/dL (3.5-5.0) Lipase 57 IU/L IU/L (23-300) Urine Color YELLOW Urine Appearance CLEAR Urine pH 7.0 (5.0-7.5) Ur Specific [place] 1.024 (1.002-1.030) Urine Protein 1+ H (NEGATIVE) Urine Ketones 2+ H (NEGATIVE) Urine Blood NEGATIVE (NEGATIVE) Urine Nitrate NEGATIVE (NEGATIVE) Urine Bilirubin NEGATIVE (NEGATIVE) Urine Urobilinogen NEGATIVE EU EU (0.2-1.0) Ur Leukocyte Esterase NEGATIVE (NEGATIVE) Urine RBC 1-3 /hpf /hpf (0-3) Urine WBC 1-3 /hpf /hpf (0-3) Ur Epithelial Cells TRACE /lpf /lpf (NONE-1+) Urine Mucus TRACE /lpf /lpf (NONE-1+) Urine Glucose NEGATIVE (NEGATIVE) Medications Given: Discontinued Medications Diphenhydramine HCl (Benadryl Injection) 25 mg IVP EDNOW ONE Stop: 12/10/16 12:43 Last Admin: 12/10/16 12:55 Dose: 25 mg Haloperidol Lactate (Haldol Injection) 5 mg IVP EDNOW ONE Stop: 12/10/16 12:43 Last Admin: 12/10/16 12:55 Dose: 5 mg Lidocaine HCl 100 mg/ Sodium (Chloride) 110 mls @ 600 mls/hr IV EDNOW ONE Stop: 12/10/16 14:14 Last Admin: 12/10/16 14:38 Dose: 110 mls Ketamine HCl (Ketamine) 20 mg IVP EDNOW ONE Stop: 12/10/16 15:26 Last Admin: 12/10/16 15:29 Dose: Not Given Ketamine HCl (Ketamine) 20 mg IVP EDNOW ONE Stop: 12/10/16 15:29 Last Admin: 12/10/16 15:33 Dose: 20 mg Ketorolac Tromethamine (Toradol) 15 mg IVP EDNOW ONE Stop: 12/10/16 15:26 Last Admin: 12/10/16 15:32 Dose: 15 mg Metoclopramide HCl (Reglan Injection) 10 mg IVP EDNOW ONE Stop: 12/10/16 12:43 Last Admin: 12/10/16 12:55 Dose: 10 mg Departure - Departure Disposition: Home, Routine, Self-Care Clinical Impression: Cyclic vomiting syndrome Qualifiers: Vomiting Intractability: non-intractable Nausea presence: with nausea Qualified Code(s): G43.A0 - Cyclical vomiting, not intractable Condition: Fair Instructions: Chronic Abdominal Pain (ED) Referrals: NONE *PRIMARY CARE P,. [Primary Care Provider] - As per Instructions Leo Perea MD [Medical Doctor] - As per Instructions Prescriptions: Ketorolac Tromethamine [Toradol] 10 mg PO Q6H #16 tab Promethazine HCl [Phenergan 25mg supp (RX)] 25 mg TN Q4-6PRN PRN #10 suppr PRN Reason: Headache
[2016-12-10 12:53] LABS: ALANINE AMINOTRANSFERASE 76 IU/L (21-72); ALKALINE PHOSPHATASE 134 IU/L (38-126); ASPARTATE AMINOTRANSFERASE 37 IU/L (17-59); BILIRUBIN-CONJUGATED 0.3 mg/dL (0.0-0.5); BILIRUBIN-UNCONJUGATED 0.7 mg/dL (0.0-1.1); CALCIUM 10.6 mg/dL (8.5-10.4); CARBON DIOXIDE 23 mEq/l (22-31); CHLORIDE 106 mEq/L (97-110); CREATININE 0.9 mg/dL (0.7-1.3); GLOMERULAR FILTRATION RATE > 60; GLUCOSE 143 mg/dL (70-100); SODIUM 142 mEq/L (134-144)
[2016-12-10 13:05] LABS: ANION GAP 13 mEq/L (8-16); POTASSIUM 4.5 mEq/L (3.5-5.2)
[2016-12-10] MEDS ORDERED: LIDOCAINE 1% 100 MG in NS 100 ML IV ONE (14:04)
[2016-12-10 15:01] VITALS: RESP 14; TEMP 98.4; O2SAT 96
[2016-12-10 15:23] LABS: COLOR YELLOW; LEUKOCYTE ESTERASE,URINE NEGATIVE (NEGATIVE); NITRITE,URINE NEGATIVE (NEGATIVE)
[2016-12-10 15:24] LABS: MUCUS TRACE /lpf (NONE-1+)
[2016-12-10] MEDS ORDERED: KETAMINE 500 MG/10 ML VIAL IVP ONE (15:25)
[2016-12-10] MEDS: KETOROLAC 15 MG/1 ML SDV IVP ONE ×2 (15:28→15:32)
[2016-12-10] MEDS ORDERED: KETAMINE 100 MG/10 ML SYR IVP ONE (15:28)
[2016-12-10 17:02] VITALS: BP 130/86; PULSE 80
== END 2016-12-10 16:56 | disposition home or self-care (01) ==
DX: G43.A0 Cyclical vomiting, in migraine, not intractable (principal)
CPT/HCPCS: 96374; J1200; J1885; J2765

== ENCOUNTER 2017-01-29 03:48 | Emergency (ER) | payer MEDICAID ==
[2017-01-29] MEDS ORDERED: METOCLOPRAMIDE 10 MG/2 ML VIAL IVP ONE (04:08)
[2017-01-29] MEDS ORDERED: NS 1,000 ML IV ONE ×2 (04:08)
[2017-01-29] MEDS ORDERED: HALOPERIDOL LACT 5 MG/ML INJ IVP ONE (04:08)
[2017-01-29] MEDS ORDERED: FAMOTIDINE 20 MG/NACL 50 ML IV ONE (04:08)
--- NOTE | 2017-01-29 04:15 | EDPHY ---
H & P Stated Complaint: abd pain vomiting diarrhea Time Seen by Provider: 01/29/17 03:58 HPI/ROS: HPI The patient presents with abdominal pain and vomiting that began at about 2:00 a.m. this morning and awoke him from sleep. He has had numerous episodes of nonbloody emesis that of lasted for the last 2 hr. He did try a Phenergan suppository with some improvement in his symptoms. His pain is mostly epigastric, wrenching in nature. He has had episode of diarrhea with this. After symptoms started, he took a shower and his says that he fainted twice during this. The patient is followed by Gastroenterology, Dr. 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 He is on daily medications but still has symptoms very frequently. He was last in the ER about a month and a half ago and was treated with IV fluids and pain medication. REVIEW OF SYSTEMS Constitutional: No fever, no chills. Eyes: No discharge. ENT: No sore throat. Cardiovascular: No chest pain, no palpitations. Respiratory: No cough, no shortness of breath. Gastrointestinal: See HPI Genitourinary: No hematuria. Musculoskeletal: No back pain. Skin: No rashes. Neurological: No headache. 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 PHYSICAL General Appearance: Alert, no distress Eyes: Pupils equal and round no pallor or injection ENT, Mouth: Mucous membranes moist Respiratory: There are no retractions, lungs are clear to auscultation Cardiovascular: Regular rate and rhythm Gastrointestinal: Abdomen is soft and non-tender, no masses, bowel sounds normal Neurological: A&O, moves all extremities Skin: Warm and dry, no rashes Musculoskeletal: Neck is supple non tender Extremities: symmetrical, full range of motion Psychiatric: Patient is oriented X 3, there is no agitation Source: Patient Exam Limitations: No limitations - Personal History Current Tetanus/Diphtheria Vaccine: Yes Current Tetanus Diphtheria and Acellular Pertussis (TDAP): Yes - Medical/Surgical History Hx Asthma: No Hx Chronic Respiratory Disease: No Hx Diabetes: No Hx Cardiac Disease: No Hx Renal Disease: No Hx Cirrhosis: No Hx Alcoholism: No Hx HIV/AIDS: No Hx Splenectomy or Spleen Trauma: No Other PMH: Hep C+, Marijuana, chronic N/V. ?IBS - Social History Smoking Status: Never smoked Constitutional: Initial Vital Signs Temperature (C) 36.3 C 01/29/17 03:51 Heart Rate 83 01/29/17 03:51 Respiratory Rate 18 01/29/17 03:51 Blood Pressure 134/81 H 01/29/17 03:51 O2 Sat (%) 94 01/29/17 03:51 O2 Delivery Mode Room Air Allergies/Adverse Reactions: Sulfa (Sulfonamide Antibiotics) Allergy (Intermediate, Verified 12/10/16 12:04) Swelling/neck,face,throat lorazepam [From Ativan] Allergy (Mild, Verified 12/10/16 12:04) Other-Enter Comments Home Medications: Medication Instructions Recorded Desipramine HCl [Norpramin] 10 mg PO 12/10/16 Hyoscyamine Sulfate [Levsin, 0.125 mg 12/10/16 Hyomax-Sl 0.125 mg (*)] Promethazine HCl [Phenergan 25mg 25 mg OK Q4-6PRN PRN #10 suppr 12/10/16 supp (RX)] Ondansetron Odt [Zofran Odt 4 mg 4 mg PO Q4 PRN #20 tab 01/29/17 (*)] Promethazine HCl [Phenergan 50mg 25 mg OK Q12H PRN #30 suppr 01/29/17 supp (*)] Medical Decision Making Differential Diagnosis: 31-year-old male presents from home with abdominal pain and continuous vomiting for the last several hours. He has multiple prior episodes of this, his symptoms began in March of this year. He does not have any abdominal tenderness. Differential diagnosis includes cyclic vomiting syndrome, functional IBS, viral gastroenteritis, gastritis. In the emergency department, basic labs were checked. The patient was treated with IV fluids, Reglan, famotidine, Haldol. The patient had complete resolution of his symptoms and felt much better. Labs were checked and did reveal a leukocytosis. I feel this is likely stress related from his vomiting. He does not have a fever, any abdominal tenderness at this point and I doubt that he has appendicitis or any serious intra- abdominal pathology. He will be discharged home with Zofran and Phenergan suppositories. I have advised him to follow up with his copy preparer. - Data Points Laboratory Results: Laboratory Results 12/07/17 04:05 01/29/17 04:05 01/29/17 01/29/17 04:05 04:05 WBC 21.41 10^3/uL H 10^3/uL (3.80-9.50) RBC 5.74 10^6/uL 10^6/uL (4.40-6.38) Hgb 17.8 g/dL H g/dL (13.7-17.5) Hct 50.5 % % (40.0-51.0) MCV 88.0 fL fL (81.5-99.8) MCH 31.0 pg pg (27.9-34.1) MCHC 35.2 g/dL g/dL (32.4-36.7) RDW 12.0 % % (11.5-15.2) Plt Count 313 10^3/uL 10^3/uL (150-400) MPV 9.9 fL fL (8.7-11.7) Neut % (Auto) 76.0 % H % (39.3-74.2) Lymph % (Auto) 15.9 % % (15.0-45.0) [place] % (Auto) 5.7 % % (4.5-13.0) Eos % (Auto) 1.4 % % (0.6-7.6) Baso % (Auto) 0.3 % % (0.3-1.7) Nucleat RBC Rel Count 0.0 % % (0.0-0.2) Absolute Neuts (auto) 16.30 10^3/uL H 10^3/uL (1.70-6.50) Absolute Lymphs (auto) 3.40 10^3/uL H 10^3/uL (1.00-3.00) Absolute Monos (auto) 1.21 10^3/uL H 10^3/uL (0.30-0.80) Absolute Eos (auto) 0.29 10^3/uL 10^3/uL (0.03-0.40) Absolute Basos (auto) 0.07 10^3/uL 10^3/uL (0.02-0.10) Absolute Nucleated RBC 0.00 10^3/uL 10^3/uL (0-0.01) Immature Gran % 0.7 % % (0.0-1.1) Immature Gran # 0.14 10^3/uL H 10^3/uL (0.00-0.10) Sodium 147 mEq/L H mEq/L (134-144) Potassium 4.4 mEq/L mEq/L (3.5-5.2) Chloride 104 mEq/L mEq/L (97-110) Carbon Dioxide 27 mEq/l mEq/l (22-31) Anion Gap 16 mEq/L mEq/L (8-16) BUN 22 mg/dL mg/dL (7-23) Creatinine 1.0 mg/dL mg/dL (0.7-1.3) Estimated GFR > 60 Glucose 98 mg/dL mg/dL (70-100) Calcium 10.0 mg/dL mg/dL (8.5-10.4) Total Bilirubin 0.7 mg/dL mg/dL (0.1-1.4) AST 38 IU/L IU/L (17-59) ALT 57 IU/L IU/L (21-72) Alkaline Phosphatase 103 IU/L IU/L (38-126) Total Protein 7.3 g/dL g/dL (6.3-8.2) Albumin 4.4 g/dL g/dL (3.5-5.0) Medications Given: Discontinued Medications Haloperidol Lactate (Haldol Injection) 2.5 mg IVP EDNOW ONE Stop: 01/29/17 04:09 Last Admin: 01/29/17 04:19 Dose: 2.5 mg Sodium Chloride (Ns) 1,000 mls @ 0 mls/hr IV EDNOW ONE; Wide Open PRN Reason: Protocol Stop: 01/29/17 04:09 Last Admin: 01/29/17 04:20 Dose: 1,000 mls Sodium Chloride (Ns) 1,000 mls @ 0 mls/hr IV EDNOW ONE; Wide Open PRN Reason: Protocol Stop: 01/29/17 04:09 Last Admin: 01/29/17 04:21 Dose: 1,000 mls Famotidine/Sodium Chloride (Pepcid 20 Mg (Premix)) 50 mls @ 200 mls/hr IV EDNOW ONE Stop: 01/29/17 04:22 Last Admin: 12/07/17 04:20 Dose: 50 mls Metoclopramide HCl (Reglan Injection) 10 mg IVP EDNOW ONE Stop: 01/29/17 04:09 Last Admin: 01/29/17 04:20 Dose: 10 mg Departure - Departure Disposition: Home, Routine, Self-Care Clinical Impression: Nausea & vomiting Condition: Good Instructions: Acute Nausea and Vomiting (ED) Additional Instructions: Please return to the emergency department if you are worse in any way. Referrals: Leo Perea MD [Medical Doctor] - As per Instructions Prescriptions: Ondansetron Odt [Zofran Odt 4 mg (*)] 4 mg PO Q4 PRN #20 tab PRN Reason: Nausea/Vomiting, Can'T Take Po Promethazine HCl [Phenergan 50mg supp (*)] 25 mg OK Q12H PRN #30 suppr PRN Reason: vomiting
[2017-01-29 05:30] LABS: % IMMATURE GRANULYOCYTES 0.7 % (0.0-1.1); ABSOLUTE IMMATURE GRANULOCYTES 0.14 10^3/uL (0.00-0.10); ADD DIFF? NO; ADD MORPH? NO; ADD SCAN? NO; ATYPICAL LYMPHOCYTE FLAG 0 (0-99); FRAGMENT RBC FLAG 0 (0-99); HEMATOCRIT 50.5 % (40.0-51.0); HEMOGLOBIN 17.8 g/dL (13.7-17.5); LEFT SHIFT FLG 0 (0-99); LIPEMIA HEMOLYSIS FLAG 90 (0-99); MEAN CELL HEMOGLOBIN CONCENTR. 35.2 g/dL (32.4-36.7); MEAN PLATELET VOLUME 9.9 fL (8.7-11.7); PLATELET CLUMPS FLAG 0 (0-99); PLATELET COUNT 313 10^3/uL (150-400); RED BLOOD CELL COUNT 5.74 10^6/uL (4.40-6.38)
[2017-01-29 05:38] LABS: ALANINE AMINOTRANSFERASE 57 IU/L (21-72); ALBUMIN 4.4 g/dL (3.5-5.0); ALKALINE PHOSPHATASE 103 IU/L (38-126); ANION GAP 16 mEq/L (8-16); ASPARTATE AMINOTRANSFERASE 38 IU/L (17-59); BILIRUBIN,TOTAL 0.7 mg/dL (0.1-1.4); CARBON DIOXIDE 27 mEq/l (22-31); CHLORIDE 104 mEq/L (97-110); GLOMERULAR FILTRATION RATE > 60; GLUCOSE 98 mg/dL (70-100); POTASSIUM 4.4 mEq/L (3.5-5.2); SODIUM 147 mEq/L (134-144); TOTAL PROTEIN 7.3 g/dL (6.3-8.2)
[2017-01-29 06:42] VITALS: BP 145/81; PULSE 73; RESP 16; TEMP 98.2; O2SAT 96
== END 2017-01-29 06:41 | disposition home or self-care (01) ==
DX: R11.2 Nausea with vomiting, unspecified (principal); E86.9 Volume depletion, unspecified
CPT/HCPCS: 96374; J1630; J2765

== ENCOUNTER 2017-02-02 07:48 | Emergency (ER) | payer MEDICAID ==
[2017-02-02] MEDS ORDERED: HALOPERIDOL LACT 5 MG/ML INJ IVP ONE (08:00)
[2017-02-02] MEDS ORDERED: METOCLOPRAMIDE 10 MG/2 ML VIAL IVP ONE (08:00)
[2017-02-02 08:03] VITALS: RESP 16; TEMP 97.9
--- NOTE | 2017-02-02 08:03 | EDPHY ---
H & P Time Seen by Provider: 02/02/17 07:52 HPI/ROS: CHIEF COMPLAINT: Abdominal pain, dry heaving, diarrhea HISTORY OF PRESENT ILLNESS: Patient is a 31-year-old man who comes to the emergency department via EMS complaining of abdominal pain, dry heaving and diarrhea since he woke up this morning. He is followed by Dr. Perea from GI and is diagnosed with functional IBS. He has been seen here several times for similar symptoms. He was seen here on the 7th treated with Haldol and Reglan with good success. He is discharged on Phenergan suppositories and Zofran which worked for in the past. He states that he did not take them in time today for them to work. He states that this illness is messing with his mind that he is scared to go to sleep because he is afraid he will wake up with the symptoms. No fever. No blood in his vomit or stool. He has an appointment with Gastroenterology tomorrow. REVIEW OF SYSTEMS: Constitutional: denies: chills, fever, recent illness, recent injury EENTM: denies: blurred vision, double vision, nose congestion Respiratory: denies: cough, shortness of breath Cardiac: denies: chest pain, irregular heart rate, lightheadedness, palpitations Gastrointestinal/Abdominal: See HPI Genitourinary: denies: dysuria, frequency, hematuria, pain Musculoskeletal: denies: joint pain, muscle pain Skin: denies: lesions, rash, jaundice, bruising Neurological: denies: headache, numbness, paresthesia, tingling, dizziness, weakness Hematologic/Lymphatic: denies: blood clots, easy bleeding, easy bruising Immunologic/allergic: denies: HIV/AIDS, transplant EXAM: GENERAL: Well-appearing, well-nourished and in no acute distress. HEAD: Atraumatic, normocephalic. EYES: Pupils equal round and reactive to light, extraocular movements intact, sclera anicteric, conjunctiva are normal. ENT: TMs normal, nares patent, oropharynx clear without exudates. Moist mucous membranes. NECK: Normal range of motion, supple without lymphadenopathy or JVD. LUNGS: Breath sounds clear to auscultation bilaterally and equal. No wheezes rales or rhonchi. HEART: Regular rate and rhythm without murmurs, rubs or gallops. ABDOMEN: Soft, nontender, normoactive bowel sounds. No guarding, no rebound. No masses appreciated. BACK: No CVA tenderness, no spinal tenderness, step-offs or deformities EXTREMITIES: Normal range of motion, no pitting or edema. No clubbing or cyanosis. NEUROLOGICAL: Cranial nerves II through XII grossly intact. Normal speech, normal gait. 5/5 strength, normal movement in all extremities, normal sensation PSYCH: Normal mood, normal affect. SKIN: Warm, dry, normal turgor, no visible rashes or lesions. Source: Patient Exam Limitations: No limitations - Medical/Surgical History Hx Asthma: No Hx Chronic Respiratory Disease: No Hx Diabetes: No Hx Cardiac Disease: No Hx Renal Disease: No Hx Cirrhosis: No Hx Alcoholism: No Hx HIV/AIDS: No Hx Splenectomy or Spleen Trauma: No Other PMH: Hep C+, Marijuana, chronic N/V. ?IBS - Family History Significant Family History: No pertinent family hx - Social History Smoking Status: Never smoked Alcohol Use: Sober Drug Use: None Constitutional: Initial Vital Signs Temperature (C) 36.6 C 02/02/17 08:00 Heart Rate 63 02/02/17 08:00 Respiratory Rate 16 02/02/17 08:00 Blood Pressure 135/88 H 02/02/17 08:00 O2 Sat (%) 97 02/02/17 08:00 O2 Delivery Mode Room Air O2 (L/minute) 2 Allergies/Adverse Reactions: Sulfa (Sulfonamide Antibiotics) Allergy (Intermediate, Verified 12/10/16 12:04) Swelling/neck,face,throat lorazepam [From Ativan] Allergy (Mild, Verified 12/10/16 12:04) Other-Enter Comments Home Medications: Medication Instructions Recorded Desipramine HCl [Norpramin] 10 mg PO 12/10/16 Hyoscyamine Sulfate [Levsin, 0.125 mg 12/10/16 Hyomax-Sl 0.125 mg (*)] Promethazine HCl [Phenergan 25mg 25 mg MN Q4-6PRN PRN #10 suppr 12/10/16 supp (RX)] Ondansetron Odt [Zofran Odt 4 mg 4 mg PO Q4 PRN #20 tab 01/29/17 (*)] Promethazine HCl [Phenergan 50mg 25 mg MN Q12H PRN #30 suppr 01/29/17 supp (*)] Scopolamine Hydrobromide 1 patch TD Q24H #10 patch 02/02/17 [Scopolamine Patch] Medical Decision Making ED Course/Re-evaluation: 8:50 a.m. the patient's abdominal exam remains benign. He is feeling much better after medication and is sleeping comfortably. His is at the bedside. 9:50 a.m. the patient is continuing to feel well. His abdominal exam is benign. We discussed marijuana use. He states he has not used for last 3 days. He does not think that this is treated with cannabis hyperemesis. We discussed other options as far as medications. He has a suppository and is dissolvable tablet currently. We will try scopolamine patch to see if this helps before bed. The patient also will follow up with his glass washer and carrier Dr. Perea. He is also requesting a referral to dog food shredder operator. Differential Diagnosis: Partial list of the Differential diagnosis considered include but were not limited to; cyclic vomiting, cannabis hyperemesis, irritable bowel and although unlikely based on the history and physical exam, I also considered constipation, ischemia, obstruction, perforation, biliary disease. I discussed these differential diagnoses and the plan with the patient as well as the usual and expected course. The patient understands that the diagnosis is provisional and that in medicine we are not always correct and that further workup is often warranted. Usual and customary warnings were given. All of the patient's questions were answered. The patient was instructed to return to the emergency department should the symptoms at all worsen or return, otherwise to followup with the physician as we discussed. - Data Points Medications Given: Discontinued Medications Haloperidol Lactate (Haldol Injection) 5 mg IVP EDNOW ONE Stop: 02/02/17 08:01 Last Admin: 02/02/17 08:11 Dose: 5 mg Sodium Chloride (Ns) 1,000 mls @ 0 mls/hr IV ONCE ONE PRN Reason: Wide Open Stop: 02/02/17 08:11 Last Admin: 02/02/17 08:13 Dose: 1,000 mls Metoclopramide HCl (Reglan Injection) 10 mg IVP EDNOW ONE Stop: 02/02/17 08:01 Last Admin: 02/02/17 08:11 Dose: 10 mg Departure - Departure Disposition: Home, Routine, Self-Care Clinical Impression: Abdominal pain Qualifiers: Abdominal location: generalized Qualified Code(s): R10.84 - Generalized abdominal pain Condition: Fair Instructions: Abdominal Pain (ED) Referrals: ED,PHYSICIAN ONDUTY [Primary Care Provider] - As per Instructions Prescriptions: Scopolamine Hydrobromide [Scopolamine Patch] 1 patch TD Q24H #10 patch
[2017-02-02] MEDS ORDERED: NS 1,000 ML IV ONE (08:10)
[2017-02-02 10:08] VITALS: BP 127/72; PULSE 55; O2SAT 96
== END 2017-02-02 10:08 | disposition home or self-care (01) ==
LOC: EDBD → EDUNIT#
DX: R10.84 Generalized abdominal pain (principal); R19.7 Diarrhea, unspecified
CPT/HCPCS: 96374; J1630; J2765

== ENCOUNTER 2017-02-08 16:18 | Emergency (ER) | payer MEDICAID ==
[2017-02-08 16:24] VITALS: BP 136/81; PULSE 90; RESP 18; TEMP 98.4; O2SAT 96
--- NOTE | 2017-02-08 17:00 | EDPHY ---
H & P Time Seen by Provider: 02/08/17 16:45 HPI/ROS: CHIEF COMPLAINT: Blurred vision HISTORY OF PRESENT ILLNESS: The patient is a 31 y/o male with a history of hepatitis C, complaining of blurred vision. Onset of blurred vision this afternoon. He is concerned it's related to a new medication, Mavyert, which he started 2 days ago. He also just started using Scopolamine patches and has a scopolamine patch in place now. His vision is blurred for both near and far distance and he especially has difficulty focusing when trying to read at close distance. Denies headache, recent head/neck injury, paresthesias, numbness, fever or other pertinent symptoms. REVIEW OF SYSTEMS: Aside from elements discussed in the HPI, a comprehensive 10-point review of systems was reviewed and is negative. Past Medical/Surgical History: Hepatitis C, chronic nausea and vomiting Social History: Single, lives in [place], works for [employer] Smoking Status: Never smoked Physical Exam: General Appearance: Alert, pleasant Eyes: Pupils equal and round, 4mm, no conjunctival pallor or injection. Pupils equal and reactive, EOMI, Visual Acuity 20/25 ENT, Mouth: Mucous membranes moist, scopolamine patch behind left ear Neck: Normal inspection Respiratory: Lungs are clear to auscultation Cardiovascular: Regular rate and rhythm Gastrointestinal: Abdomen is soft and non-tender Neurological: A&O, CN II-XII intact, motor/sensory intact, normal gait Skin: Warm and dry, no rash Extremities: Nontender, no pedal edema Psychiatric: Mood and affect normal Constitutional: Initial Vital Signs Temperature (C) 36.9 C 02/08/17 16:21 Heart Rate 90 02/08/17 16:21 Respiratory Rate 18 02/08/17 16:21 Blood Pressure 136/81 H 02/08/17 16:21 O2 Sat (%) 96 02/08/17 16:21 O2 Delivery Mode Room Air Allergies/Adverse Reactions: Sulfa (Sulfonamide Antibiotics) Allergy (Intermediate, Verified 02/08/17 16:20) Swelling/neck,face,throat lorazepam [From Ativan] Allergy (Mild, Verified 02/08/17 16:20) Other-Enter Comments Home Medications: Medication Instructions Recorded Desipramine HCl [Norpramin] 10 mg PO 12/10/16 Hyoscyamine Sulfate [Levsin, 0.125 mg 12/10/16 Hyomax-Sl 0.125 mg (*)] Promethazine HCl [Phenergan 25mg 25 mg DC Q4-6PRN PRN #10 suppr 12/10/16 supp (RX)] Ondansetron Odt [Zofran Odt 4 mg 4 mg PO Q4 PRN #20 tab 01/29/17 (*)] Promethazine HCl [Phenergan 50mg 25 mg DC Q12H PRN #30 suppr 01/29/17 supp (*)] Scopolamine Hydrobromide 1 patch TD Q24H #10 patch 02/02/17 [Scopolamine Patch] Glecaprevir/Pibrentasvir [Mavyret 1 each PO 02/08/17 100-40 mg Tablet] Medical Decision Making ED Course/Re-evaluation: The patient is a 31 y/o male with a history of hepatitis C, presenting with blurred vision. His symptoms are c/w an adverse side effect of Scopolamine patches. I have advised him to stop using the patches in order to improve his vision. Patch removed in ED. Doubt side effect to Mary Lou; I reviewed the adverse reaction list with Mary Lou, and blurry vision is not listed as a side effect. 182: Reassessed patient and discussed follow up with Dr. Teixeira, thermostatic controls supervisor, if his blurred vision continues tomorrow. Return precautions provided; patient is comfortable with this plan. Departure - Departure Disposition: Home, Routine, Self-Care Clinical Impression: Blurred vision, bilateral Reaction, drug, adverse Qualifiers: Encounter type: initial encounter Qualified Code(s): T88.7XXA - Unspecified adverse effect of drug or medicament, initial encounter Condition: Good Instructions: Blurred Vision (ED) Additional Instructions: Do not use the Scopolamine patches. If you need to use them for severe nausea, then you should expect to have blurred vision. If your blurred vision continues tomorrow, follow up with an opthamologist, you have been referred to Dr. Teixeira. Return to the emergency department immediately for recurrence of headache, nausea, vomiting, numbness, weakness, neck pain, fever or other concerns. Referrals: Russell Teixeira MD [Medical Doctor] - As per Instructions Report Scribed for: Sania Jacob Report Scribed by: Maryan Loredo Date of Report: 02/08/17 Time of Report: 17:00 Physician Review and Approval Statement: 02/08/17 17:00 Portions of this note were transcribed by a medical supply technician. I personally performed a history, physical exam, medical decision making, and confirmed accuracy of information the transcribed note.
== END 2017-02-08 17:28 | disposition home or self-care (01) ==
DX: H53.8 Other visual disturbances (principal); T37.5X5A Adverse effect of antiviral drugs, initial encounter

== ENCOUNTER 2017-02-10 11:55 | Emergency (ER) | payer MEDICAID ==
[2017-02-10 11:59] VITALS: TEMP 98.2
[2017-02-10] MEDS ORDERED: NS 1,000 ML IV ONE (12:16)
[2017-02-10 12:46] LABS: % IMMATURE GRANULYOCYTES 0.5 % (0.0-1.1); ABSOLUTE IMMATURE GRANULOCYTES 0.07 10^3/uL (0.00-0.10); ADD DIFF? NO; ADD MORPH? NO; ADD SCAN? NO; ATYPICAL LYMPHOCYTE FLAG 0 (0-99); FRAGMENT RBC FLAG 0 (0-99); HEMATOCRIT 47.9 % (40.0-51.0); HEMOGLOBIN 17.6 g/dL (13.7-17.5); LEFT SHIFT FLG 0 (0-99); LIPEMIA HEMOLYSIS FLAG 90 (0-99); MEAN CELL HEMOGLOBIN 31.9 pg (27.9-34.1); MEAN CELL HEMOGLOBIN CONCENTR. 36.7 g/dL (32.4-36.7); MEAN CELL VOLUME 86.9 fL (81.5-99.8); MEAN PLATELET VOLUME 9.4 fL (8.7-11.7); PLATELET CLUMPS FLAG 0 (0-99); PLATELET COUNT 326 10^3/uL (150-400); RED BLOOD CELL COUNT 5.51 10^6/uL (4.40-6.38); RED CELL DISTRIBUTION WIDTH 11.9 % (11.5-15.2)
[2017-02-10 12:52] LABS: ANION GAP 17 mEq/L (8-16); CARBON DIOXIDE 23 mEq/l (22-31); CHLORIDE 107 mEq/L (97-110); CREATININE 0.9 mg/dL (0.7-1.3); GLOMERULAR FILTRATION RATE > 60; GLUCOSE 102 mg/dL (70-100); POTASSIUM 4.3 mEq/L (3.5-5.2); SODIUM 147 mEq/L (134-144)
[2017-02-10] MEDS ORDERED: HALOPERIDOL LACT 5 MG/ML INJ IVP ONE (12:55)
[2017-02-10] MEDS ORDERED: FAMOTIDINE 20 MG in NS 100 ML IV ONE (12:55)
[2017-02-10 13:27] VITALS: RESP 16
--- NOTE | 2017-02-10 14:33 | EDPHY ---
H & P Time Seen by Provider: 02/10/17 12:10 HPI/ROS: CHIEF COMPLAINT: Abdominal pain, vomiting HISTORY OF PRESENT ILLNESS: 31-year-old male presents to the emergency department by private vehicle complaining of multiple episodes of vomiting since early this morning. The patient has a history of cyclical vomiting syndrome and has had this "20 times "this past year. He stop smoking marijuana over 1 week ago. He states he would really like to try to get himself feeling better. He has been seen by mobile home installer in the past and had a clean endoscopy. He takes medications for GERD and vomiting. Denies fevers, chills, chest pain or difficulty breathing. Denies back pain. He has also had episodes of diarrhea as well. No hematemesis or blood in his stool. No reported trauma. REVIEW OF SYSTEMS: Constitutional: No fever, no chills. Eyes: No double or blurry vision. ENT: No sore throat. Respiratory: No cough, no shortness of breath. Cardiac: No chest pain. Gastrointestinal: Abdominal pain, vomiting as above. No diarrhea. Genitourinary: No dysuria. Musculoskeletal: No neck or back pain. Skin: No rashes. Neurological: No headache. Past Medical/Surgical History: Cyclical vomiting syndrome, marijuana use Social History: Single Smoking Status: Never smoked Physical Exam: General Appearance: Alert, no distress. Afebrile. Nontoxic appearing. Eyes: Pupils equal and round. Extraocular motions are all intact. ENT: Mouth: Mucous membranes moist. Respiratory: No wheezing, rhonchi, or rales, lungs are clear to auscultation. Cardiovascular: Regular rate and rhythm. Gastrointestinal: Abdomen is soft. He has mild diffuse tenderness with palpation. There is no masses, rebound or guarding noted. No CVA tenderness bilaterally. Neurological: Alert and oriented x 3, cranial nerves II through XII grossly intact Skin: Warm and dry, no rashes. Musculoskeletal: Nontender to palpate along the cervical, thoracic or lumbar spine. Neck is supple. Extremities: Full range of motion and no peripheral edema. Psychiatric: Patient is oriented X 3, there is no agitation. Constitutional: Initial Vital Signs Temperature (C) 36.8 C 02/10/17 11:57 Heart Rate 92 02/10/17 11:57 Respiratory Rate 18 02/10/17 11:57 Blood Pressure 112/93 H 02/10/17 11:57 O2 Sat (%) 98 02/10/17 11:57 O2 Delivery Mode Room Air Allergies/Adverse Reactions: Sulfa (Sulfonamide Antibiotics) Allergy (Intermediate, Verified 02/10/17 12:00) Swelling/neck,face,throat lorazepam [From Ativan] Allergy (Mild, Verified 02/10/17 12:00) Other-Enter Comments Home Medications: Medication Instructions Recorded Desipramine HCl [Norpramin] 10 mg PO 12/10/16 Hyoscyamine Sulfate [Levsin, 0.125 mg 12/10/16 Hyomax-Sl 0.125 mg (*)] Medical Decision Making ED Course/Re-evaluation: 31-year-old male presents to the emergency department with multiple episodes of vomiting and abdominal pain. The patient has a history of cyclical vomiting syndrome. I do not think this patient has acute abdomen. He no rebound tenderness. The patient does not tolerate lorazepam well. He is given 2.5 mg of IV Haldol and was observed. His symptoms completely resolved. He was tolerating p.o. fluids upon discharge is comfortable being discharged home. manager applied also help to arrange a follow-up appointment for him and patient states going to switch to [employer] and will find a primary care provider close to home. Differential Diagnosis: Including but not limited to gastroenteritis, cyclical vomiting syndrome, hyperemesis cannabinoid syndrome, dehydration, electrolyte abnormality - Data Points Laboratory Results: Laboratory Results 02/10/17 12:11 02/10/17 12:11 02/10/17 02/10/17 12:11 12:11 WBC 14.01 10^3/uL H 10^3/uL (3.80-9.50) RBC 5.51 10^6/uL 10^6/uL (4.40-6.38) Hgb 17.6 g/dL H g/dL (13.7-17.5) Hct 47.9 % % (40.0-51.0) MCV 86.9 fL fL (81.5-99.8) MCH 31.9 pg pg (27.9-34.1) MCHC 36.7 g/dL g/dL (32.4-36.7) RDW 11.9 % % (11.5-15.2) Plt Count 326 10^3/uL 10^3/uL (150-400) MPV 9.4 fL fL (8.7-11.7) Neut % (Auto) 77.3 % H % (39.3-74.2) Lymph % (Auto) 16.5 % % (15.0-45.0) Schley % (Auto) 4.9 % % (4.5-13.0) Eos % (Auto) 0.5 % L % (0.6-7.6) Baso % (Auto) 0.3 % % (0.3-1.7) Nucleat RBC Rel Count 0.0 % % (0.0-0.2) Absolute Neuts (auto) 10.83 10^3/uL H 10^3/uL (1.70-6.50) Absolute Lymphs (auto) 2.31 10^3/uL 10^3/uL (1.00-3.00) Absolute Monos (auto) 0.69 10^3/uL 10^3/uL (0.30-0.80) Absolute Eos (auto) 0.07 10^3/uL 10^3/uL (0.03-0.40) Absolute Basos (auto) 0.04 10^3/uL 10^3/uL (0.02-0.10) Absolute Nucleated RBC 0.00 10^3/uL 10^3/uL (0-0.01) Immature Gran % 0.5 % % (0.0-1.1) Immature Gran # 0.07 10^3/uL 10^3/uL (0.00-0.10) Sodium 147 mEq/L H mEq/L (134-144) Potassium 4.3 mEq/L mEq/L (3.5-5.2) Chloride 107 mEq/L mEq/L (97-110) Carbon Dioxide 23 mEq/l mEq/l (22-31) Anion Gap 17 mEq/L H mEq/L (8-16) BUN 15 mg/dL mg/dL (7-23) Creatinine 0.9 mg/dL mg/dL (0.7-1.3) Estimated GFR > 60 Glucose 102 mg/dL H mg/dL (70-100) Calcium 10.0 mg/dL mg/dL (8.5-10.4) Medications Given: Discontinued Medications Haloperidol Lactate (Haldol Injection) 2.5 mg IVP EDNOW ONE Stop: 02/10/17 12:56 Last Admin: 02/10/17 13:23 Dose: 2.5 mg Sodium Chloride (Ns) 1,000 mls @ 0 mls/hr IV ONCE ONE; Wide Open PRN Reason: Protocol Stop: 02/10/17 12:17 Last Admin: 02/10/17 12:19 Dose: 1,000 mls Famotidine 20 mg/ Sodium (Chloride) 102 mls @ 408 mls/hr IV EDNOW ONE Stop: 02/10/17 13:09 Last Admin: 02/10/17 13:23 Dose: 102 mls Departure - Departure Disposition: Home, Routine, Self-Care Clinical Impression: Vomiting Qualifiers: Vomiting type: unspecified Vomiting Intractability: non-intractable Nausea presence: with nausea Qualified Code(s): R11.2 - Nausea with vomiting, unspecified Condition: Good Instructions: Acute Nausea and Vomiting (ED) Additional Instructions: Clear liquids and then slowly advance diet as tolerated. Abdominal Pain: Return to the Emergency Department immediately for increasing pain, fever, vomiting, or if not completely better in 8-12 hours. Referrals: Shilo Norris MD [Medical Doctor] - 2-3 days, call for appt. (Primary care provider attraction worker)
[2017-02-10 14:42] VITALS: BP 138/80; PULSE 64; O2SAT 97
== END 2017-02-10 14:40 | disposition home or self-care (01) ==
DX: R11.2 Nausea with vomiting, unspecified (principal); E86.9 Volume depletion, unspecified
CPT/HCPCS: 96374; J1630